=== PATIENT | male | born 1965 | race Caucasian/White ===

== ENCOUNTER 2018-03-25 16:09 | Emergency (ER) | payer MEDICAID ==
[~2018-03-25] VITALS: Ht 188 cm; Wt 102.0 kg
[~2018-03-25 16:09] MED LIST: AMOX1TAB64 PO; ASPI325T80 PO; DOCU100C33 PO; FENO130C6 PO; FENO150C4 PO; FERR324T8 PO; GABA300C PO; GABA600T2 PO; HYDR-3241 PO; HYDR-3342 PO; INSU100C SQ-INSULIN; LABE100T6 PO; MORP-52 PO; OXYC5CAP2 PO
[2018-03-25 16:19] VITALS: BP 161/84
[2018-03-25] MEDS ORDERED: HYDR-3245 PO (16:59)
[2018-03-25] MEDS ORDERED: CITA40TA5 PO (17:02)
[2018-03-25] MEDS ORDERED: BUPR150T20 PO (17:03)
[2018-03-25] MEDS ORDERED: GLIP5TAB10 PO (17:03)
[2018-03-25] MEDS ORDERED: SILD20TA2 PO (17:05)
[2018-03-25] MEDS ORDERED: LISI-167 PO (17:06)
== END 2018-03-25 18:22 | disposition home or self-care (01) ==
LOC: ED 18:05
DX: S80.12XA Contusion of left lower leg, initial encounter (principal); I10 Essential (primary) hypertension; E11.9 Type 2 diabetes mellitus without complications; F17.200 Nicotine dependence, unspecified, uncomplicated; Z89.612 Acquired absence of left leg above knee; Z88.5 Allergy status to narcotic agent; X58.XXXA Exposure to other specified factors, initial encounter; Y93.89 Activity, other specified; Y92.89 Other specified places as the place of occurrence of the external cause; Y99.8 Other external cause status
CPT/HCPCS: 99284

== ENCOUNTER 2018-06-04 17:04 | Emergency (ER) | payer MEDICAID, MEDICARE ==
[~2018-06-04] VITALS: Ht 188 cm; Wt 100.0 kg
[~2018-06-04 17:04] MED LIST changes: +BUPR150T20 PO; +CITA40TA5 PO; +GLIP5TAB10 PO; +HYDR-3245 PO; +LISI-167 PO; +SILD20TA2 PO
[2018-06-04] MEDS ORDERED: DIPHENHYDRAMINE 50 MG/ML, 1ML IVPush ONE (17:30)
[2018-06-04] MEDS ORDERED: MORPHINE SULFATE 4 MG/ML, 1ML IVPush PRN (18:00)
[2018-06-04] MEDS ORDERED: FAMOTIDINE 20 MG/2 ML IVPush ONE (18:00)
--- NOTE | 2018-06-04 18:00 | NUR ---
break coverage: assumed care of pt on behalf of primary RN for lunch break only. pt her for systemic rash. pt has rash in face, trunk, back, R leg and palms of the hands. no oral swelling, no difficulty breathing speaking or swallowing. pt reports that he has had no relief with benadryl [employer]. Dr Ospina at bedside for eval
--- NOTE | 2018-06-04 18:02 | NUR ---
break coverage: pt reports that he takes morphine at [facility] but he has been out of morphine for 4 days and his doctor told him to come in for evaluation
[2018-06-04 18:14] LABS: BASOPHILS # (AUTO) 0.06 x10^3/uL (0-0.1); BASOPHILS % (AUTO) 1 % (0-1); EOSINOPHILS # (AUTO) 0.97 x10^3/uL (0-0.4); EOSINOPHILS % (AUTO) 9 % (1-7); LYMPHOCYTES # (AUTO) 1.68 x10^3/uL (1-3.4); LYMPHOCYTES % (AUTO) 16 % (22-44); MD NO; MEAN CORPUSCULAR HEMOGLOBIN 31.6 pg (27.5-34.5); MEAN CORPUSCULAR HGB CONC 33.6 g/dL (33.2-36.2); MEAN CORPUSCULAR VOLUME 94.1 fL (81-97); MEAN PLATELET VOLUME 9.3 fL (7.4-10.4); MONOCYTES # (AUTO) 0.44 x10^3/uL (0.2-0.8); MONOCYTES % (AUTO) 4 % (2-9); NEUTROPHILS # (AUTO) 7.36 x10^3/uL (1.8-6.8); NEUTROPHILS % (AUTO) 70 % (42-75); PLATELET COUNT 288 x10^3/uL (130-400); RED BLOOD COUNT 4.13 x10^6/uL (4.38-5.82); RED CELL DISTRIBUTION WIDTH 16.7 % (9.4-14.8)
[2018-06-04 18:25] LABS: ALBUMIN 3.3 g/dL (3.4-5.0); ANION GAP 9 mmol/L (5-15); CALCIUM 8.3 mg/dL (8.5-10.1); CHLORIDE 112 mmol/L (98-107); CREATININE 2.98 mg/dL (0.7-1.3)
[2018-06-04 18:29] LABS: ALANINE AMINOTRANSFERASE 22 U/L (12-78); ALKALINE PHOSPHATASE 73 U/L (45-117); BILIRUBIN,TOTAL 0.4 mg/dL (0.2-1.0); TOTAL PROTEIN 7.3 g/dL (6.4-8.2)
[2018-06-04] MEDS ORDERED: EPINEPHRINE 1 MG/ML, 1ML IM ONE (18:30)
[2018-06-04] MEDS ORDERED: EPINEPHRINE 1 MG/ML, 1ML ONE (18:53)
[2018-06-04] MEDS ORDERED: DIPHENHYDRAMINE 50 MG/ML, 1ML ONE (18:53)
[2018-06-04] MEDS ORDERED: MORPHINE SULFATE 4 MG/ML, 1ML ONE (18:54)
[2018-06-04] MEDS ORDERED: FAMOTIDINE 20 MG/2 ML ONE (18:54)
[2018-06-04] MEDS ORDERED: SODIUM CHLORIDE FLUSH 10ML SYR IVF ONE (19:00)
[2018-06-04 19:36] LABS: HCT (SEDRATE) 38.9 % (39.2-51.8)
[2018-06-04 20:37] VITALS: BP 136/77
== END 2018-06-04 20:57 | disposition home or self-care (01) ==
LOC: ED 20:46
DX: L50.1 Idiopathic urticaria (principal); E11.9 Type 2 diabetes mellitus without complications; I10 Essential (primary) hypertension; F17.200 Nicotine dependence, unspecified, uncomplicated
CPT/HCPCS: 36415; 80053; 85025; 85651; 86141; 93005; 96372; 96374; 96375; 99284; J0171; J1200; J3490; J7512